=== PATIENT | male | born 2000 | race Caucasian/White ===

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

== ENCOUNTER 2021-09-18 07:47 | Emergency (ER) | payer OTHER ==
[~2021-09-18] VITALS: Ht 190.5 cm; Wt 124.7 kg
[~2021-09-18 07:47] MED LIST changes: +CEPHALEXIN500 M1 PO
[2021-09-18 08:05] VITALS: BP 134/74
[2021-09-18] MEDS ORDERED: CYCLOBENZAPRINE10 MG PO (09:45)
[2021-09-18] MEDS ORDERED: PREDNISONE10 MG PO (09:45)
== END 2021-09-18 09:48 | disposition home or self-care (01) ==
LOC: ED 07:47
DX: S13.4XXA Sprain of ligaments of cervical spine, initial encounter (principal); V89.2XXA Person injured in unspecified motor-vehicle accident, traffic, initial encounter; Y93.89 Activity, other specified; Y92.89 Other specified places as the place of occurrence of the external cause; Y99.8 Other external cause status

== ENCOUNTER → 2022-04-11 | Outpatient (CLI) | payer BC ==
[~2022-04-11] MED LIST changes: +CYCLOBENZAPRINE10 MG PO; +PREDNISONE10 MG PO
== END | disposition home or self-care (01) ==
LOC: LAB 14:09
PROVIDERS: ATTEND Podiatrist
DX: L08.9 Local infection of the skin and subcutaneous tissue, unspecified (principal)

== ENCOUNTER 2022-07-04 12:03 | Emergency (ER) | payer BC ==
[~2022-07-04] VITALS: Ht 190.5 cm; Wt 117.9 kg
[2022-07-04 12:09] VITALS: BP 137/85
[2022-07-04] MEDS ORDERED: AMOXICILLIN500 M2 PO (14:43)
== END 2022-07-04 14:50 | disposition home or self-care (01) ==
LOC: ED 12:03
DX: H66.92 Otitis media, unspecified, left ear (principal); Z20.822 Contact with and (suspected) exposure to COVID-19; R09.81 Nasal congestion; R53.81 Other malaise; Z88.6 Allergy status to analgesic agent; Z79.2 Long term (current) use of antibiotics; Z79.899 Other long term (current) drug therapy; Z96.22 Myringotomy tube(s) status

== ENCOUNTER → 2022-08-29 | Outpatient (CLI) | payer BC ==
[~2022-08-29] MED LIST changes: +AMOXICILLIN500 M2 PO
== END | disposition home or self-care (01) ==
LOC: COVID19 08:10
PROVIDERS: ATTEND Internal Medicine
DX: Z20.822 Contact with and (suspected) exposure to COVID-19 (principal)

== ENCOUNTER 2023-11-14 16:45 | Emergency (ER) | payer BC ==
[~2023-11-14] VITALS: Ht 190.5 cm; Wt 117.9 kg
[2023-11-14 16:53] VITALS: BP 142/82
[2023-11-14] MEDS ORDERED: AMOX-CLAV 875-1 EACH PO (17:39)
== END 2023-11-14 17:41 | disposition home or self-care (01) ==
LOC: ED 16:45
DX: H66.92 Otitis media, unspecified, left ear (principal); Z88.6 Allergy status to analgesic agent; Z98.890 Other specified postprocedural states

== ENCOUNTER 2025-10-20 13:45 | Emergency (ER) | payer SELFPAY ==
[~2025-10-20] VITALS: Wt 117.9 kg
[~2025-10-20 13:45] MED LIST changes: +AMOX-CLAV 875-1 EACH PO
[2025-10-20 14:50] VITALS: BP 131/79
== END 2025-10-20 15:01 | disposition home or self-care (01) ==
LOC: ED 13:45
DX: B34.9 Viral infection, unspecified (principal); Z88.8 Allergy status to other drugs, medicaments and biological substances; Z20.822 Contact with and (suspected) exposure to COVID-19